=== PATIENT | female | born 1985 | race Two or more races ===

== ENCOUNTER 2023-12-28 17:18 | Inpatient (IN) | payer MEDICAID ==
[~2023-12-28] VITALS: Ht 157.5 cm; Wt 111.1 kg
[2023-12-28 19:53] LABS: Basophils # (auto) 0.1 10 ^3/uL (0-0.2); Basophils % (auto) 0.7 % (0.0-2.0); Eosinophils # (auto) 0.1 10 ^3/uL (0-0.8); Eosinophils % (auto) 1.7 % (0.0-7.0); Hematocrit 42.3 % (36.0-46.0); Hemoglobin 14.2 g/dL (12.2-16.2); Lymphocytes # (auto) 2.5 10 ^3/uL (0.4-5.4); Lymphocytes % (auto) 32.2 % (10.0-50.0); Mean Corpuscular Hemoglobin 31.4 pg (28.0-32.0); Mean Corpuscular Hgb Conc. 33.4 g/dL (32.0-36.0); Mean Corpuscular Volume 93.8 fL (80.0-100.0); Monocytes # (auto) 0.4 10 ^3/uL (0-1.3); Monocytes % (auto) 5.3 % (0.0-12.0); Neutrophils # (auto) 4.7 10 ^3/uL (1.6-8.6); Neutrophils % (auto) 60.1 % (37.0-80.0); Red Blood Cells 4.51 10^6/uL (4.0-5.20); Red Cell Distribution Width 13.4 % (11.8-14.3); White Blood Cell 7.8 10^3/uL (4.4-10.8)
[2023-12-28] MEDS: PENICILLIN G POTASSIUM 2,500,000 UNITS in D5W 5% 50 ML IV SCH (20:00)
[2023-12-28 20:23] LABS: Alanine Aminotransferase 20 U/L (7-40); Albumin 4.4 g/dL (3.2-4.8); Alkaline Phosphatase 103 U/L (46-116); Anion Gap 6 (5-15); Aspartate Aminotransferase 25 U/L (13-40); BUN/Creatinine Ratio 22.4 (10.0-20.0); Blood Urea Nitrogen 15 mg/dL (9-23); Calcium 9.9 mg/dL (8.5-10.1); Carbon Dioxide 28 mmol/L (20-30); Chloride 105 mmol/L (98-107); Glucose 81 mg/dL (74-106); Potassium 4.1 mmol/L (3.5-5.1); Sodium 139 mmol/L (136-145)
[2023-12-28 20:24] LABS: Bilirubin, Total 0.5 mg/dL (0.2-1.0); Total Protein 6.6 g/dL (5.7-8.2)
[2023-12-29] VITALS (8 sets, daily range): BP systolic 95–145; BP diastolic 55–86; PULSE 62–74; RESP 17–20; TEMP 97.7–98.7; O2SAT 93–100
[2023-12-29] MEDS ORDERED: DOCUSATE SOD 100 MG CAP PO PRN (01:00)
[2023-12-29] MEDS ORDERED: HYDROcodone-ACET 5/325MG TAB PO PRN (01:00)
[2023-12-29] MEDS ORDERED: NITROGLYCERIN 0.4 MG SL TAB SL PRN (01:00)
[2023-12-29] MEDS ORDERED: ONDANSETRON HCL 4 MG/2 ML VIAL IV PRN (01:00)
[2023-12-29] MEDS ORDERED: MORPHINE SULFATE INJ 2 MG/ml SYRG IV PRN (01:00)
[2023-12-29] MEDS: ACETAMINOPHEN 325 MG TAB PO PRN (04:20)
[2023-12-29] MEDS ORDERED: ACET250T20 PO (04:57)
[2023-12-29] MEDS ORDERED: PRED1SUS4 OP (05:00)
[2023-12-29] MEDS ORDERED: MICO2CRE63 VA (05:06)
[2023-12-29] MEDS ORDERED: METH2.5T PO (05:06)
[2023-12-29] MEDS ORDERED: NITR-52 PO (05:06)
[2023-12-29] MEDS ORDERED: TOPI25CA5 PO (05:06)
[2023-12-29] MEDS ORDERED: FOLI-119 PO (05:06)
[2023-12-29] MEDS: SODIUM CHLOR 0.9% PF (SALINE LOCK) 10ML VIAL/SYR IV SCH (06:29)
[2023-12-30 05:00] VITALS: BP 109/71; PULSE 79; RESP 18; TEMP 98; O2SAT 97
[2023-12-30 05:24] LABS: Basophils # (auto) 0 10 ^3/uL (0-0.2); Basophils % (auto) 0.3 % (0.0-2.0); Eosinophils # (auto) 0.1 10 ^3/uL (0-0.8); Eosinophils % (auto) 1.5 % (0.0-7.0); Hematocrit 40.2 % (36.0-46.0); Hemoglobin 13.6 g/dL (12.2-16.2); Lymphocytes % (auto) 29.8 % (10.0-50.0); Mean Corpuscular Hemoglobin 31.7 pg (28.0-32.0); Mean Corpuscular Hgb Conc. 33.8 g/dL (32.0-36.0); Mean Corpuscular Volume 93.8 fL (80.0-100.0); Monocytes # (auto) 0.4 10 ^3/uL (0-1.3); Monocytes % (auto) 6.6 % (0.0-12.0); Neutrophils # (auto) 4.1 10 ^3/uL (1.6-8.6); Neutrophils % (auto) 61.8 % (37.0-80.0); Nucleated Red Blood Cells % 0.1 %; Red Blood Cells 4.29 10^6/uL (4.0-5.20); Red Cell Distribution Width 13.4 % (11.8-14.3); White Blood Cell 6.6 10^3/uL (4.4-10.8)
[2023-12-30 05:40] LABS: Alanine Aminotransferase 17 U/L (7-40); Alkaline Phosphatase 77 U/L (46-116); Anion Gap 7 (5-15); BUN/Creatinine Ratio 15.4 (10.0-20.0); Blood Urea Nitrogen 10 mg/dL (9-23); Calcium 8.7 mg/dL (8.7-10.4); Carbon Dioxide 23 mmol/L (20-30); Chloride 107 mmol/L (98-107); Glucose 94 mg/dL (74-106); Potassium 3.9 mmol/L (3.5-5.1); Sodium 137 mmol/L (136-145)
[2023-12-30 05:41] LABS: Albumin 3.7 g/dL (3.2-4.8); Aspartate Aminotransferase 15 U/L (13-40); Bilirubin, Total 0.6 mg/dL (0.2-1.0); Total Protein 6.2 g/dL (5.7-8.2)
[2023-12-30 08:00] VITALS: BP 108/66; PULSE 73; RESP 16; TEMP 98.8; O2SAT 94
[2023-12-30 08:56] VITALS: BP 108/66; PULSE 73; RESP 16; TEMP 98.8; O2SAT 94
[2023-12-30 13:00] VITALS: BP 123/76; PULSE 61; RESP 18; TEMP 98; O2SAT 94
[2023-12-30] MEDS ORDERED: METHOTREXATE 2.5 MG TAB PO SCH (16:45)
[2023-12-30 17:00] VITALS: BP 123/45; PULSE 61; RESP 16; TEMP 98.2; O2SAT 98
[2023-12-30] MEDS ORDERED: PROPRANOLOL HCL 20 MG TAB PO SCH (22:00)
[2023-12-30] MEDS ORDERED: TOPIRAMATE 25 MG TAB PO SCH (22:00)
[2023-12-30] MEDS ORDERED: acetaZOLAMIDE 250 MG TAB PO SCH (22:00)
== END 2023-12-30 18:23 | disposition left against medical advice (07) | DRG 724 ==
LOC: ER 17:18 → OVERFLOW 12-29 01:04 → EAST 12-29 04:00 → TELE-EAST 12-29 06:45
PROVIDERS: ADMIT Nurse Practitioner Family; ATTEND Internal Medicine
DX: A53.9 Syphilis, unspecified (principal); G91.2 (Idiopathic) normal pressure hydrocephalus; M06.9 Rheumatoid arthritis, unspecified; E66.01 Morbid (severe) obesity due to excess calories; G43.909 Migraine, unspecified, not intractable, without status migrainosus; Z68.41 Body mass index [BMI] 40.0-44.9, adult
CPT/HCPCS: 36415; 70450; 80053; 83605; 83880; 84484; 85025; 86592; 86703; G0378; J7060